=== PATIENT | male | born 1995 | race Caucasian/White ===

== ENCOUNTER 2016-08-09 09:40 | Emergency (ER) | payer OTHER ==
[2016-08-09 09:47] VITALS: BP 120/57; PULSE 68; RESP 18; TEMP 97.9
[2016-08-09] MEDS ORDERED: PROPARACAINE 0.5% OPHTH DROPS 15 ML BTL RIGHT EYE STA (10:16)
[2016-08-09] MEDS ORDERED: TOBRAMYCIN 0.3% OPHTH DROPS 5 ML BTL RIGHT EYE STA (10:22)
--- NOTE | 2016-08-09 10:26 | ED ---
ENT HPI - General Chief complaint: ENT Stated complaint: Eye injury Time Seen by Provider: 08/09/16 09:50 Source: patient, RN notes reviewed Mode of arrival: ambulatory Limitations: no limitations - History of Present Illness Initial comments: 20-year-old male presents emergency Department chief complaint right eye irritation. Patient states he felt like something got in his eye yesterday. Patient states that he tried rinsing out felt better but states he still feels that there is a scratch. Patient's tetanus is up-to-date within last 5 years. Patient denies any visual changes. Patient states his happened at work patient offers no other complaints. - Related Data Previous Rx's Medication Instructions Recorded Tobramycin [Tobrex 0.3% Ophth Soln] 1 drop RIGHT EYE Q4HR #5 ml 08/09/16 Review of Systems ROS Statement: Those systems with pertinent positive or pertinent negative responses have been documented in the HPI. ROS Other: All systems not noted in ROS Statement are negative. Past Medical History Additional Past Medical History / Comment(s): Back pain. History of Any Multi-Drug Resistant Organisms: None Reported Past Surgical History: Ear Surgery Additional Past Surgical History / Comment(s): Ear tubes. Past Psychological History: No Psychological Hx Reported Smoking Status: Never smoker Past Alcohol Use History: None Reported Past Drug Use History: None Reported General Exam Limitations: no limitations General appearance: alert, in no apparent distress Head exam: Present: atraumatic, normocephalic, normal inspection Eye exam: Present: PERRL, EOMI, conjunctival injection (Mild right), other ( Patient had complete relief of his symptoms with 2 drops of proparacaine flouroscein and perez lamps were used to evaluate the right eye there is a small abrasion to the conjunctiva and the 12 o'clock position). Absent: normal appearance, scleral icterus, periorbital swelling ENT exam: Present: normal exam, mucous membranes moist Course Vital Signs 08/09/16 09:41 Temperature 97.9 F Pulse Rate 68 Respiratory 18 Rate Blood Pressure 120/57 O2 Sat by Pulse 98 Oximetry Medical Decision Making - Medical Decision Making 20-year-old male presented for right eye irritation. Patient has conjunctival abrasion. Patient was placed on Tobrex eyedrops follow-up with ophthalmology return parameters were discussed tetanus is up-to-date. Disposition Clinical Impression: Conjunctival abrasion Disposition: HOME SELF-CARE Condition: Stable Instructions: Eye Foreign Body (ED) Additional Instructions: Please return to the Emergency Department if symptoms worsen or any other concerns. Prescriptions: Tobramycin [Tobrex 0.3% Ophth Soln] 1 drop RIGHT EYE Q4HR #5 ml Referrals: None,Stated [Primary Care Provider] - 1-2 days Katharine Fox MD [STAFF PHYSICIAN] - 1-2 days Time of Disposition: 10:25
== END 2016-08-09 10:37 | disposition home or self-care (01) ==
LOC: EC 09:40
DX: S05.01XA Injury of conjunctiva and corneal abrasion without foreign body, right eye, initial encounter (principal); Z98.890 Other specified postprocedural states; X58.XXXA Exposure to other specified factors, initial encounter
CPT/HCPCS: 99283

== ENCOUNTER 2017-01-03 12:17 | Emergency (ER) | payer OTHER | END 2017-01-03 13:25 | disposition home or self-care (01) | LOC: EC 12:17 | DX: T15.01XA Foreign body in cornea, right eye, initial encounter (principal); Z79.1 Long term (current) use of non-steroidal anti-inflammatories (NSAID); Y92.009 Unspecified place in unspecified non-institutional (private) residence as the place of occurrence of the external cause | CPT/HCPCS: 99283 ==